=== PATIENT | male | born 1955 | race Caucasian/White ===

== ENCOUNTER 2018-04-23 14:58 | Emergency (ER) | payer MEDICARE, OTHER ==
[~2018-04-23] VITALS: Ht 182.9 cm; Wt 86.2 kg
[2018-04-23 17:59] VITALS: BP 105/82
--- NOTE | 2018-04-23 20:26 | Diagnostic Imaging Report ---
CT head and maxillofacial without contrast. History:Altered mental status with questionable right scalp hematoma, possible fall. Fall 2 years ago with cervical spine fracture and chronic subdural hematomas with recent behavioral change. Comparison studies:None Technique: Axial images were obtained from the skull base to the vertex. Coronal and sagittal images reconstructed from the axial data. Intravenous contrast: None Findings: Scalp/bones: Vertically oriented left frontal calvarium fracture deformity which extends into the left superior orbital wall without associated overlying soft tissue hematoma suggesting a relatively chronic fracture. Chronic C1 fracture deformity stabilized via partial visualized cervico-occipital fusion hardware construct. Right frontal calvarial dena hole deformity. Right parietal dena hole for ventricular catheter placement. Poor dentition with multiple dental caries. Extra-axial spaces: Bifrontal low density subacute to chronic subdural hematomas measuring 1.3 cm on the right and 0.9 cm on the left in maximum thickness with a small component of hyperdense acute hemorrhage in the right frontal subdural hematoma. Right parietal shunt catheter with tip in the right lateral ventricle atrium. Brain sulci: Mildly prominent. Ventricles: Ex vacuo compensatory dilatation. No subependymal edema or evidence of hydrocephalus. Parenchyma: Left orbital frontal region hypoattenuation favored to represent chronic encephalomalacia, probably from prior traumatic contusion, given the adjacent ex vacuo dilatation of the left lateral ventricle frontal horn or prior vascular insult. Cortical-based hypodensity in left parietal and temporal region represents age indeterminate possible chronic vascular insult. No acute intracranial hemorrhage.. Sellar/suprasellar region: No abnormalities. Craniocervical junction: Patent foramen magnum. No Chiari one malformation. Paranasal sinuses: Clear. Chronic fracture deformity of the right lateral pterygoid plate versus motion-related artifact. Orbits: Left frontal calvarial fracture extending into the left orbital roof without associated post septal hematoma; favored to be chronic. Incidental findings: Atherosclerotic calcifications in the carotid siphons . Multifocal dental caries and endodontal disease, the activity of which is to be determined mind clinically. Impression: 1. Bifrontal low density subacute to chronic subdural hematomas measuring 1.3 cm on the right and 0.9 cm on the left with a small acute component of hyperdense acute hemorrhage in the right frontal subdural hematoma. 2.Vertically oriented left frontal calvarium fracture deformity which extends into the left orbital roof without associated hematoma suggesting a relatively chronic fracture. 3. Left orbital frontal region encephalomalacia likely from prior traumatic contusion versus prior vascular insult. 4. Age indeterminate possible chronic left temporoparietal vascular insult in MCA territory. Findings discussed with Dr. Conroy at 5:25 PM on 04/23/2018. A preliminary report was given by Neuroradiology fellow Dr. Tubbs at 6:20 PM on 04/23/2018. I have reviewed the images and agree with the findings in the preliminary report. Signed by: Dr. Yaa Morgan M.D. on 04/23/2018 8:22 PM
== END 2018-04-23 18:45 | disposition home or self-care (01) ==
LOC: ER 14:58
DX: S06.5X0A Traumatic subdural hemorrhage without loss of consciousness, initial encounter (principal); S00.03XA Contusion of scalp, initial encounter; Z98.2 Presence of cerebrospinal fluid drainage device
CPT/HCPCS: 70450; 70486; 99284